=== PATIENT | male | born 1965 | race Caucasian/White ===

== ENCOUNTER 2022-01-13 12:34 | Emergency (ER) | payer OTHER, BC ==
[2022-01-13 13:35] VITALS: TEMP 98; BMI 22.8
[2022-01-13 14:28] LABS: ARTERIAL BLD GAS O2 SATURATION 97.8 % (95-98); ARTERIAL BLOOD GAS BASE EXCESS 0.5 mmol/L (-2-2); ARTERIAL BLOOD GAS PO2 101.8 mmHg (80-100); ARTERIAL BLOOD GAS pH 7.419 (7.350-7.450)
[2022-01-13 14:30] LABS: ALLENS TEST POSITIVE
[2022-01-13 14:46] LABS: BASO % 0.3 % (0-2.0); EOS % 1.3 % (0-4.5); HEMATOCRIT 42.9 % (35.4-49); HEMOGLOBIN 14.6 GM/dL (11.7-16.9); LYMPH % 25.8 % (8-40); MCH 29.5 pg (25.7-33.7); MEAN CELL VOLUME 86.9 fl (80-96); MEAN PLT VOLUME 7.8 fl (7.5-11.1); MONO % 6.3 % (3.8-10.2); NEUT % 66.3 % (42.8-82.8); PLATELET COUNT 194 10^3/uL (134-434); RBC 4.93 M/mm3 (4.00-5.60); RDW 13.7 % (11.9-15.9); WHITE BLOOD COUNT 4.8 K/mm3 (4.0-10.0)
[2022-01-13 15:06] LABS: ALBUMIN 3.7 g/dl (3.4-5.0); BLOOD UREA NITROGEN 12.8 mg/dL (7-18); CALCIUM 8.7 mg/dL (8.5-10.1)
[2022-01-13 15:08] LABS: CREATININE 0.7 mg/dL (0.55-1.3)
[2022-01-13 15:10] LABS: BILIRUBIN,TOTAL 0.8 mg/dL (0.2-1); TOT PROT 6.4 g/dl (6.4-8.2)
[2022-01-13 17:33] VITALS: BP 138/86; PULSE 60; RESP 14
[2022-01-13] MEDS ORDERED: ASPIRIN 81 MG CHEWABLE TABLETS PO ONE (17:37)
[2022-01-13] MEDS ORDERED: ASPIRIN 81 MG CHEWABLE TABLETS ONE (17:42)
== END 2022-01-13 18:22 | disposition left against medical advice (07) ==
LOC: JER 12:34
DX: R07.89 Other chest pain (principal); Z77.028 Contact with and (suspected) exposure to other hazardous aromatic compounds
CPT/HCPCS: 36415; 36600; 71046-TC-FY; 80053; 82375; 82803; 83605; 83655; 84484; 85025; 93005; 93010; 99284-25

== ENCOUNTER 2022-12-27 10:52 | Emergency (ER) | payer OTHER, BC ==
[2022-12-27 11:00] VITALS: BP 136/93; PULSE 68; RESP 18; TEMP 98.3; BMI 25.7
[2022-12-27] MEDS ORDERED: ACETAMINOPHEN 500 MG TABLET (FP) PO ONE (11:33)
[2022-12-27] MEDS ORDERED: ACETAMINOPHEN 325 MG TABLET (FP) ONE (11:37)
== END 2022-12-27 12:27 | disposition home or self-care (01) ==
LOC: JERFT 10:52
DX: M25.521 Pain in right elbow (principal); M25.511 Pain in right shoulder; X50.1XXA Overexertion from prolonged static or awkward postures, initial encounter; Y93.B3 Activity, free weights; Y92.009 Unspecified place in unspecified non-institutional (private) residence as the place of occurrence of the external cause
CPT/HCPCS: 73030-TC-RT-FY; 73070-TC-RT-FY; 99283-25